=== PATIENT | male | born 1985 | race Caucasian/White ===

== ENCOUNTER 2017-12-23 19:29 | Emergency (ER) | payer OTHER ==
[~2017-12-23] VITALS: Ht 193 cm; Wt 86.2 kg
[~2017-12-23 19:29] MED LIST: COLACE100 MG PO; NAPROXEN 500MG500 MG PO; NOHOMEMEDICATIONS; NORCO 5-325 TA1 EAC1 PO; NORCO 5-325 TA1 EACH PO
[2017-12-23] MEDS ORDERED: TORADOL 10 MG T10 MG PO (20:31)
[2017-12-23] MEDS ORDERED: KEFLEX500 M1 PO (20:31)
[2017-12-23 21:01] VITALS: BP 169/90
== END 2017-12-23 21:04 | disposition home or self-care (01) ==
LOC: M.ERS 19:29
DX: L08.9 Local infection of the skin and subcutaneous tissue, unspecified (principal); Z88.0 Allergy status to penicillin

== ENCOUNTER 2018-07-26 21:31 | Emergency (ER) | payer OTHER ==
[~2018-07-26] VITALS: Ht 193 cm; Wt 86.2 kg
[~2018-07-26 21:31] MED LIST changes: +KEFLEX500 M1 PO; +TORADOL 10 MG T10 MG PO
[2018-07-26] MEDS ORDERED: SENNA S TABLET1 EACH PO (22:00)
[2018-07-26] MEDS ORDERED: HYDROCORTISONE30 G9 RECTAL (22:00)
[2018-07-26 22:16] VITALS: BP 122/76
== END 2018-07-26 22:16 | disposition home or self-care (01) ==
LOC: M.ERS 21:31
DX: K64.9 Unspecified hemorrhoids (principal)

== ENCOUNTER 2019-06-12 09:37 | Emergency (ER) | payer OTHER ==
[~2019-06-12] VITALS: Ht 193 cm; Wt 90.7 kg
[~2019-06-12 09:37] MED LIST changes: +HYDROCORTISONE30 G9 RECTAL; +SENNA S TABLET1 EACH PO
[2019-06-12 10:09] LABS: ABSOLUTE BASOPHILS 0.1 thou/uL (0.0-0.2); ABSOLUTE EOSINOPHILS 0.1 thou/uL (0.0-0.7); ABSOLUTE LYMPHOCYTES 2.2 thou/uL (0.8-5.3); ABSOLUTE MONOCYTES 0.6 thou/uL (0.0-1.2); ABSOLUTE NEUTROPHILS 8.5 thou/uL (1.6-8.1); BASOPHILS 0.7 %; EOSINOPHILS 0.5 %; LYMPHOCYTES 19.3 %; MCH 29.4 pg (26.0-34.0); MCHC 34.1 g/dL (28.0-37.0); MCV 86.2 fL (80.0-100.0); MONOCYTES 5.5 %; NUCLEATED RBCS 0 /100WBC; PLATELET COUNT* 284 thou/uL (150-400); RBC 5.45 mil/uL (4.50-6.00); RDW-CV 13.1 % (10.5-14.5); WBC 11.4 thou/uL (4.0-11.0)
[2019-06-12 10:19] LABS: CALCIUM 9.6 mg/dL (8.5-10.1); POTASSIUM 4.3 mmol/L (3.5-5.1)
[2019-06-12 10:24] LABS: ALBUMIN 3.8 g/dL (3.4-5.0); MAGNESIUM 1.9 mg/dL (1.8-2.4); TOTAL BILIRUBIN 0.6 mg/dL (<0.1-1.0); TOTAL PROTEIN 7.1 g/dL (6.4-8.2)
[2019-06-12 10:40] LABS: URINE BILIRUBIN NEGATIVE (Negative); URINE BLOOD NEGATIVE (Negative); URINE CLARITY CLEAR; URINE COLOR YELLOW; URINE GLUCOSE-RANDOM NEGATIVE (Negative); URINE KETONES 2+ (Negative); URINE LEUKOCYTES-REFLEX NEGATIVE (Negative); URINE NITRITE-REFLEX NEGATIVE (Negative); URINE PROTEIN NEGATIVE (Negative); URINE SPECIFIC GRAVITY 1.015 (1.005-1.030); URINE UROBILINOGEN 0.2 E.U./dl (0.2-1.0)
[2019-06-12 10:58] LABS: INFLUENZA A ANTIGEN Negative (Negative); INFLUENZA B ANTIGEN Negative (Negative)
[2019-06-12] MEDS ORDERED: FLONASE 0.05%50 MCG NASAL (11:47)
[2019-06-12] MEDS ORDERED: DOXYCYCLINE 10100 M1 PO (11:47)
[2019-06-12] MEDS ORDERED: MEDROLDOSEPACK PO (11:47)
[2019-06-12 12:28] VITALS: BP 128/80
--- NOTE | 2019-06-12 15:22 | EKG ---
[place] [address] ELECTROCARDIOGRAM REPORT Name: MIRA DENNIS Room: [facility]#: [id number] Admission: 06/12/19 Attend Phys: Discharge: 06/12/19 Date of : 87 Report #: [id number] THIS REPORT FOR: //name// [facility] ED Test Date: 2019-06-12 Test Time: 10:29:21 Pat Name: MIRA DENNIS Department: Room: Gender: [employer]: : 1985 Requested By: Devyn Blunt Order Number: [id number] MD: Juan Rao Measurements Intervals [place] Rate: 62 P: 43 VT: 142 QRS: 64 QRSD: 104 T: 56 QT: 431 QTc: 438 Interpretive Statements Sinus rhythm ST elev, probable normal early repol pattern No previous ECG available for comparison Electronically Signed On 06-12-2019 15:21:53 CDT by Juan Rao [email or web address] <ELECTRONICALLY SIGNED> By: Juan Rao MD, FACC 06/12/19 1521 1029 1029 Juan Rao MD, FACC /EPI
== END 2019-06-12 12:30 | disposition home or self-care (01) ==
LOC: M.ERS 09:37
PROVIDERS: Nurse Practitioner Psychiatric/Mental Health
DX: E86.0 Dehydration (principal); J01.90 Acute sinusitis, unspecified; Z88.0 Allergy status to penicillin